=== PATIENT | female | born 1945 | race African-American/Black ===

== ENCOUNTER 2024-05-27 18:48 | Emergency (ER) | payer BC, MEDICAID ==
[~2024-05-27] VITALS: Ht 165.1 cm; Wt 63.0 kg
[~2024-05-27 18:48] MED LIST: AMLO5TAB88 PO; ASPI-1406 PO; ATOR40TA70 PO; CLON0.3T PO; CLOP75TA33 PO; DOCU-138 MT; FERR-63 PO; GABA-1180 PO; LACT10SO81 MT; ONDA4TAB50 PO; OXYC1TAB5 PO; PANT40TA51 PO; PREG75CA76 PO; REPA1TAB5 PO; SIMV-46 PO; SITA25TA3 PO; SULF1TAB48 MT; TIZA2CAP7 PO
[2024-05-27 18:49] VITALS: O2SAT 97
[2024-05-27 20:04] LABS: BASOPHILS % 0.5 % (0.0-2.0); CHLORIDE 102 mEq/L (98-107); EOSINOPHILS % 1.3 % (0.0-5.0); HEMATOCRIT. 27.9 % (36.0-48.0); HEMOGLOBIN. 9.3 g/dL (12.0-16.0); LYMPHOCYTES % 30.5 % (20.0-50.0); MEAN CORPUSCULAR HGB CONC 33.4 g/dL (31.0-37.0); MEAN CORPUSCULAR VOLUME 92.8 fL (81.0-99.0); MEAN PLATELET VOLUME 8.3 fl (7.4-10.4); MONOCYTES % 14.1 % (2.0-8.0); NEUTROPHILS % 53.6 % (40.0-76.0); PLATELET 287 x1000/uL (130-400); POTASSIUM 3.1 mEq/L (3.5-5.1); SODIUM 136 mEq/L (136-145); WHITE BLOOD COUNT 4.5 x1000/uL (4.5-11.0)
[2024-05-27 20:05] LABS: CALCIUM 7.7 mg/dL (8.7-10.4); CARBON DIOXIDE 26 mEq/L (21-32)
[2024-05-27 20:10] LABS: GLUCOSE 189 mg/dL (70-105); UREA NITROGEN BLOOD 46 mg/dL (9-23)
[2024-05-27 20:12] LABS: ALANINE AMINOTRANSFERASE < 7 IU/L (10-49); ALBUMIN 3.3 g/dL (3.2-4.8); ASPARTATE AMINOTRANSFERASE 15 IU/L (<34); BILIRUBIN TOTAL 0.5 mg/dL (0.1-1.0); LACTIC ACID 2.1 mmol/L (0.4-2.0); PROTEIN TOTAL 5.5 g/dL (6.0-8.3)
[2024-05-27] MEDS: SODIUM CHLORIDE 0.9% 1,000 ML IV ONE (20:35)
[2024-05-27] MEDS: VANCOMYCIN 1G PREMIX 200 ML IV SCH (20:35)
[2024-05-27 20:44] LABS: CREATININE 2.9 mg/dL (0.6-1.0)
[2024-05-27] MEDS: PIPERACILLIN/TAZO 3.375G/50ML 50 ML IV SCH (22:00)
[2024-05-27 22:32] LABS: TROPONIN I HIGH SENSITIVITY 20 ng/L (3.0-34)
[2024-05-27 23:16] VITALS: BP 111/74; PULSE 77; RESP 12; TEMP 36.66960; O2SAT 97
== END 2024-05-27 23:18 | disposition home or self-care (01) ==
LOC: ER 18:48 → EDBEDREQ 19:58 → ER 23:18
DX: I95.9 Hypotension, unspecified (principal); R53.1 Weakness; I11.0 Hypertensive heart disease with heart failure; I50.9 Heart failure, unspecified; E11.9 Type 2 diabetes mellitus without complications; J44.9 Chronic obstructive pulmonary disease, unspecified; G20.A1 Parkinson's disease without dyskinesia, without mention of fluctuations; F02.80 Dementia in other diseases classified elsewhere, unspecified severity, without behavioral disturbance, psychotic disturbance, mood disturbance, and anxiety; Z88.0 Allergy status to penicillin
CPT/HCPCS: 99291; 96365; 80053; 83880; 83605; 85025; 87040; 84484; 36415; 84145; J3370; J7030; 96366